=== PATIENT | female | born 1985 | race Caucasian/White ===

== ENCOUNTER 2016-10-03 20:49 | Emergency (ER) | payer BC ==
--- NOTE | 2016-10-03 21:28 | ED ---
General Adult HPI - General Chief complaint: Shortness of Breath Stated complaint: chest pain Time Seen by Provider: 10/03/16 21:00 Source: patient, RN notes reviewed Mode of arrival: ambulatory Limitations: no limitations - History of Present Illness Initial comments: This is a 31-year-old female presents emergency Department complaining of intermittent chest pain or shortness of breath over the last 2 weeks. Patient states it's been slowly getting worse and today was the worst of the 2 weeks. Patient states it comes it lasts about an hour and then it slowly goes away. Patient states it does seem to be worse with deep breathing. Patient states she hasn't been short of breath when she exerts herself just when she standing around and feels like she needs to take a deep breath. Patient states she has no risk factors she doesn't smoke she has no diabetes no high blood pressure no high cholesterol. Patient states she does have family history of heart disease her mother had heart attack in her 30s. Patient states currently she does have chest pain and it is under the left breast. Patient denies any pain with palpation. Patient denies any recent fever chills or cough. Patient denies any recent injury or trauma or new exercises. Patient denies abdominal pain patient denies nausea vomiting diarrhea. Patient denies any episodes of diaphoresis. Patient denies any lightheadedness dizziness or near syncopal episode. Patient denies any dysuria hematuria or frequency. Patient states she just started using the NuvaRing 3 months ago. - Related Data Home Medications Medication Instructions Recorded Confirmed Etonogestrel/Ethinyl Estradiol 1 ring VAGINAL Q28D 10/03/16 10/03/16 [Nuvaring Vaginal Ring] Ibuprofen [Motrin] 800 mg PO BID PRN 10/03/16 10/03/16 Allergies Allergy/AdvReac Type Severity Reaction Status Date / Time No Known Allergies Allergy Verified 10/03/16 21:30 Review of Systems ROS Statement: Those systems with pertinent positive or pertinent negative responses have been documented in the HPI. ROS Other: All systems not noted in ROS Statement are negative. Past Medical History Past Medical History: No Reported History History of Any Multi-Drug Resistant Organisms: None Reported Additional Past Surgical History / Comment(s): CERVIX PROCEDURE Past Psychological History: No Psychological Hx Reported Smoking Status: Never smoker Past Alcohol Use History: Rare Past Drug Use History: None Reported General Exam - General Exam Comments Initial Comments: GENERAL: Patient is well-developed and well-nourished. Patient is nontoxic and well- hydrated and is in mild distress. ENT: Neck is soft and supple. No significant lymphadenopathy is noted. Oropharynx is clear. Moist mucous membranes. Neck has full range of motion without eliciting any pain. EYES: The sclera were anicteric and conjunctiva were pink and moist. Extraocular movements were intact and pupils were equal round and reactive to light. Eyelids were unremarkable. PULMONARY: Unlabored respirations. Good breath sounds bilaterally. No audible rales rhonchi or wheezing was noted. CARDIOVASCULAR: There is a regular rate and rhythm without any murmurs gallops or rubs. ABDOMEN: Soft and nontender with normal bowel sounds. No palpable organomegaly was noted. There is no palpable pulsatile mass. SKIN: Skin is clear with no lesions or rashes and otherwise unremarkable. NEUROLOGIC: Patient is alert and oriented x3. Cranial nerves II through XII are grossly intact. Motor and sensory are also intact. Normal speech, volume and content. Symmetrical smile. MUSCULOSKELETAL: Normal extremities with adequate strength and full range of motion. No lower extremity swelling or edema. No calf tenderness. LYMPHATICS: No significant lymphadenopathy is noted PSYCHIATRIC: Normal psychiatric evaluation. Limitations: no limitations Course Vital Signs 10/03/16 10/03/16 21:05 21:43 Temperature 98.7 F Pulse Rate 78 Respiratory 18 16 Rate Blood Pressure 124/59 O2 Sat by Pulse 100 Oximetry Medical Decision Making - Medical Decision Making EKG shows a normal sinus rhythm at 65 bpm NM interval is 128 QRS is 90 QT interval 396 QTC is 411. Patient has no ST segment elevation or depression or T -wave abdomen is noted CT PE no PE was noted - Lab Data Result diagrams: 10/03/16 21:40 10/03/16 21:40 Lab Results 10/03/16 10/03/16 10/03/16 Range/Units 21:40 21:40 21:40 WBC 5.6 (3.8-10.6) k/uL RBC 4.22 (3.80-5.40) m/uL Hgb 12.8 (11.4-16.0) gm/dL Hct 37.4 (34.0-46.0) % MCV 88.7 (80.0-100.0) fL MCH 30.4 (25.0-35.0) pg MCHC 34.2 (31.0-37.0) g/dL RDW 12.8 (11.5-15.5) % Plt Count 181 (150-450) k/uL Neutrophils % 46 % Lymphocytes % 42 % Monocytes % 7 % Eosinophils % 2 % Basophils % 1 % Neutrophils # 2.5 (1.3-7.7) k/uL Lymphocytes # 2.3 (1.0-4.8) k/uL Monocytes # 0.4 (0-1.0) k/uL Eosinophils # 0.1 (0-0.7) k/uL Basophils # 0.0 (0-0.2) k/uL D-Dimer (<0.60) mg/L FEU Sodium 137 (137-145) mmol/L Potassium 4.0 (3.5-5.1) mmol/L Chloride 107 (98-107) mmol/L Carbon Dioxide 22 (22-30) mmol/L Anion Gap 8 mmol/L BUN 16 (7-17) mg/dL Creatinine 0.74 (0.52-1.04) mg/dL Est GFR (MDRD) Af Amer >60 (>60 ml/min/1.73 sqM) Est GFR (MDRD) Non-Af >60 (>60 ml/min/1.73 sqM) Glucose 94 (74-99) mg/dL Calcium 9.2 (8.4-10.2) mg/dL Magnesium 1.9 (1.6-2.3) mg/dL Total Bilirubin 0.4 (0.2-1.3) mg/dL AST 14 (14-36) U/L ALT 26 (9-52) U/L Alkaline Phosphatase 44 (38-126) U/L Total Creatine Kinase 60 (30-135) U/L CK-MB (CK-2) 0.5 (0.0-2.4) ng/mL CK-MB (CK-2) Rel Index 0.8 Troponin I <0.012 (0.000-0.034) ng/mL Total Protein 6.5 (6.3-8.2) g/dL Albumin 4.0 (3.5-5.0) g/dL 10/03/16 Range/Units 21:40 WBC (3.8-10.6) k/uL RBC (3.80-5.40) m/uL Hgb (11.4-16.0) gm/dL Hct (34.0-46.0) % MCV (80.0-100.0) fL MCH (25.0-35.0) pg MCHC (31.0-37.0) g/dL RDW (11.5-15.5) % Plt Count (150-450) k/uL Neutrophils % % Lymphocytes % % Monocytes % % Eosinophils % % Basophils % % Neutrophils # (1.3-7.7) k/uL Lymphocytes # (1.0-4.8) k/uL Monocytes # (0-1.0) k/uL Eosinophils # (0-0.7) k/uL Basophils # (0-0.2) k/uL D-Dimer 1.01 H (<0.60) mg/L FEU Sodium (137-145) mmol/L Potassium (3.5-5.1) mmol/L Chloride (98-107) mmol/L Carbon Dioxide (22-30) mmol/L Anion Gap mmol/L BUN (7-17) mg/dL Creatinine (0.52-1.04) mg/dL Est GFR (MDRD) Af Amer (>60 ml/min/1.73 sqM) Est GFR (MDRD) Non-Af (>60 ml/min/1.73 sqM) Glucose (74-99) mg/dL Calcium (8.4-10.2) mg/dL Magnesium (1.6-2.3) mg/dL Total Bilirubin (0.2-1.3) mg/dL AST (14-36) U/L ALT (9-52) U/L Alkaline Phosphatase (38-126) U/L Total Creatine Kinase (30-135) U/L CK-MB (CK-2) (0.0-2.4) ng/mL CK-MB (CK-2) Rel Index Troponin I (0.000-0.034) ng/mL Total Protein (6.3-8.2) g/dL Albumin (3.5-5.0) g/dL Disposition Clinical Impression: Pleuritic chest pain Disposition: HOME SELF-CARE Condition: Good Instructions: Pleurisy (ED) Referrals: None,Stated [Primary Care Provider] - 1-2 days Time of Disposition: 23:21
[2016-10-03 21:44] VITALS: RESP 16
--- NOTE | 2016-10-03 22:06 | XR ---
EXAMINATION TYPE: XR chest 2V DATE OF EXAM: 10/03/2016 9:53 PM COMPARISON: August 04, 2012 HISTORY: Difficulty in breathing chest pain x2 weeks TECHNIQUE: Frontal and lateral views of the chest are obtained. FINDINGS: No focal pneumonia pneumothorax or pleural effusion is noted.. The cardiac silhouette size is within normal limits. The osseous structures are intact. IMPRESSION: No active cardiopulmonary disease. No significant interval change.
[2016-10-03 22:07] LABS: ALT 26 U/L (9-52); AST 14 U/L (14-36); Alkaline Phosphatase 44 U/L (38-126); Anion Gap 8 mmol/L; Blood Urea Nitrogen 16 mg/dL (7-17); Calcium 9.2 mg/dL (8.4-10.2); Carbon Dioxide 22 mmol/L (22-30); Chloride 107 mmol/L (98-107); Glucose 94 mg/dL (74-99); Magnesium 1.9 mg/dL (1.6-2.3); Non-African American GFR(MDRD) >60 (>60 ml/min/1.73 sqM); Sodium 137 mmol/L (137-145); Total Bilirubin 0.4 mg/dL (0.2-1.3); Total Protein 6.5 g/dL (6.3-8.2)
[2016-10-03 22:12] LABS: Basophils % (A) 1 %; CH 30.8; CHCM 34.8; Eosinophils # (A) 0.1 k/uL (0-0.7); Eosinophils % (A) 2 %; HCT 37.4 % (34.0-46.0); HDW 2.77; HGB 12.8 gm/dL (11.4-16.0); Luc # (Auto) 0.19; Luc % (Auto) 3; Lymphocytes # (A) 2.3 k/uL (1.0-4.8); Lymphocytes % (A) 42 %; MCH 30.4 pg (25.0-35.0); MCHC 34.2 g/dL (31.0-37.0); MCV 88.7 fL (80.0-100.0); Mean Platelet Volume 8.4; Monocytes # (A) 0.4 k/uL (0-1.0); Monocytes % (A) 7 %; Neutrophils # (A) 2.5 k/uL (1.3-7.7); Neutrophils % (A) 46 %; RBC 4.22 m/uL (3.80-5.40); RDW 12.8 % (11.5-15.5); WBC 5.6 k/uL (3.8-10.6); WBC (Perox) 5.73
[2016-10-03 22:17] LABS: Creatine Kinase 60 U/L (30-135)
[2016-10-03 22:30] LABS: Creatine Kinase MB 0.5 ng/mL (0.0-2.4); Troponin I <0.012 ng/mL (0.000-0.034)
[2016-10-03] MEDS ORDERED: RX INFO: IV CONTRAST WAS GIVEN 1 EACH MISC MISCELLANE PRN (22:35)
--- NOTE | 2016-10-03 23:19 | CT ---
EXAMINATION TYPE: CT chest angio for PE DATE OF EXAM: 10/03/2016 10:56 PM COMPARISON: NONE HISTORY: Mid chest pain and shortness of breath on and off x 2 weeks with extremity weakness. CT DLP: 108.80 mGycm Automated exposure control for dose reduction was used. CONTRAST: CT Chest for pulmonary embolism performed with with IV Contrast, patient injected with 77 mL of Omnip aque 350. FINDINGS: LUNGS: Mild dependent atelectasis is noted in both lung bases. No focal pneumonia pneumothorax or pleural effusion is noted. Mild emphysematous changes are noted in both lung bases. Somewhat nodular scarring is suggested in the right lung base. There is no pleural effusion or pneumothorax seen. The tracheobronchial tree is patent. MEDIASTINUM: There is satisfactory enhancement of the pulmonary artery and its branches, there is no CT evidence for pulmonary embolism. There are no greater than 1 cm hilar or mediastinal lymph nodes. No pericardial effusion is seen. OTHER: Mild degenerative changes are present in the thoracic spine. IMPRESSION: No evidence of acute pulmonary embolism. No focal pneumonia.
[2016-10-03 23:42] VITALS: BP 115/58; PULSE 76; TEMP 98.2
== END 2016-10-03 23:41 | disposition home or self-care (01) ==
LOC: EC 20:49 → MERGE 20:49 → EC 23:41
DX: R07.81 Pleurodynia (principal); R06.02 Shortness of breath; Z82.49 Family history of ischemic heart disease and other diseases of the circulatory system; Z79.3 Long term (current) use of hormonal contraceptives
CPT/HCPCS: 99285 ×2; 36415; 93005; 85379; 80053; 82550; 82553; 83735; 84484; 85025; 71020; 71275; Q9967

== ENCOUNTER → 2016-10-26 | Outpatient (CLI) | payer BC ==
--- NOTE | 2016-10-26 10:36 | ECHOF ---
Referral Reason:R07.9 Chest Pain MEASUREMENTS -------- HEIGHT: 162.6 cm WEIGHT: 54.0 kg BP: 140/72 RVIDd: 1.9 cm (< 3.3) IVSd: 0.8 cm (0.6 - 1.1) LVIDd: 4.3 cm (3.9 - 5.3) LVPWd: 0.6 cm (0.6 - 1.1) IVSs: 1.1 cm LVIDs: 2.6 cm LVPWs: 0.9 cm LA Diam: 1.9 cm (2.7 - 3.8) Ao Diam: 2.8 cm (2.0 - 3.7) AV Cusp: 2.0 cm (1.5 - 2.6) MV EXCURSION: 23.861 mm (> 18.000) MV EF SLOPE: 74 mm/s (70 - 150) EPSS: 0.4 cm MV E Florian: 1.12 m/s MV DecT: 230 ms MV A Florian: 0.55 m/s MV E/A Ratio: 2.06 RAP: 5.00 mmHg RVSP: 22.27 mmHg FINDINGS -------- Sinus rhythm. This was a technically good study. The left ventricular size is normal. Left ventricular wall thickness is normal. Overall left ventricular systolic function is normal with, an EF between 60 - 65 %. The right ventricle is normal in size and function. The left atrial size is normal. The right atrium is normal in size. The aortic valve is trileaflet and appears structurally normal. Mild prolapse of the anterior mitral valve leaflet. Mild tricuspid regurgitation present. Right ventricular systolic pressure is normal at < 35 mmHg. Trace/mild (physiologic) pulmonic regurgitation. The aortic root size is normal. Normal inferior vena cava with normal inspiratory collapse consistent with estimated right atrial pressure of 5 mmHg. There is no pericardial effusion. CONCLUSIONS -------- 1. Sinus rhythm. 2. Mild prolapse of the anterior mitral valve leaflet. 3. Mild tricuspid regurgitation present. 4. Right ventricular systolic pressure is normal at < 35 mmHg. 5. Trace/mild (physiologic) pulmonic regurgitation. 6. The aortic root size is normal. 7. Normal inferior vena cava with normal inspiratory collapse consistent with estimated right atrial pressure of 5 mmHg. 8. There is no pericardial effusion. 9. This was a technically good study. 10. The left ventricular size is normal. 11. Left ventricular wall thickness is normal. 12. Overall left ventricular systolic function is normal with, an EF between 60 - 65 %. 13. The right ventricle is normal in size and function. 14. The left atrial size is normal. 15. The right atrium is normal in size. 16. The aortic valve is trileaflet and appears structurally normal. [employer] PLANTER: Summer Vicente RDCS
== END | disposition home or self-care (01) ==
LOC: RADECHMAIN 08:15
PROVIDERS: ATTEND Family Medicine
DX: I07.1 Rheumatic tricuspid insufficiency (principal); I37.1 Nonrheumatic pulmonary valve insufficiency
CPT/HCPCS: 93306

== ENCOUNTER → 2016-11-11 | Outpatient (CLI) | payer BC | END | disposition home or self-care (01) | LOC: RADECHMAIN 11:59 | PROVIDERS: ATTEND Nurse Practitioner Family | DX: R00.1 Bradycardia, unspecified (principal); R00.0 Tachycardia, unspecified | CPT/HCPCS: 93225; 93226 ==

== ENCOUNTER 2018-03-30 12:59 | Emergency (ER) | payer BC, OTHER ==
[2018-03-30 13:24] VITALS: RESP 18
[2018-03-30] MEDS ORDERED: SODIUM CHLORIDE 0.9% 1,000 ML IV ONE (14:06)
--- NOTE | 2018-03-30 14:08 | ED ---
Abdominal Pain HPI - General Chief Complaint: Abdominal Pain Stated Complaint: 8 wks preg abd pain Time Seen by Provider: 03/30/18 13:59 Source: patient Mode of arrival: ambulatory Limitations: no limitations - History of Present Illness Initial Comments: 32 yoF presenting with lower abdominal cramping and light headedness that began this morning at 9 am. Patient is 8 weeks by LMP and has been seeing Dr. Finn for OBGYN care. She states she has been experiencing morning nausea throughout the duration of this . Today she was unable to eat breakfast because of it. She began to experience intermittent cramping lower abdominal pain worse with ambulation and not improved by anything. She denies any vaginal bleeding, discharge, or urinary symptoms. She states while ambulating today she had a near syncopal episode characterized by room spinning dizziness, light headedness, and generalized weakness. She denies chest pain or shortness of breath. Denies previous episodes similar. She states her last was uneventful. She called her OBGYN who instructed her to come to the ED. - Related Data Home Medications Medication Instructions Recorded Confirmed Gummies 2 tab PO DAILY 03/30/18 03/30/18 Previous Rx's Medication Instructions Recorded Meclizine [Antivert] 25 mg PO BID #20 tab 03/30/18 Allergies Allergy/AdvReac Type Severity Reaction Status Date / Time No Known Allergies Allergy Verified 03/30/18 13:44 Review of Systems ROS Statement: Those systems with pertinent positive or pertinent negative responses have been documented in the HPI. Review of Systems Constitutional: Denies fever, chills Eyes: Denies change in vision, Denies pain Ears, nose, mouth, throat: Denies headaches, Denies sore throat Cardiovascular: Denies chest pain. Denies palpitations. Positive light headedness. Respiratory: Denies shortness of breath, Denies cough Gastrointestinal: Positive abdominal pain. abdominal pain. Positive nausea. Denies vomiting, diarrhea. Genitourinary: Denies hematuria, Denies infections Musculoskeletal: Denies pain, Denies swelling Integumentary: Denies rash Neurological: Denies headache, focal weakness, focal numbness Psychiatric: Denies anxiety, Denies depression Hematologic/Lymphatic: Denies easy bleeding or bruising ROS Other: All systems not noted in ROS Statement are negative. Past Medical History Past Medical History: No Reported History History of Any Multi-Drug Resistant Organisms: None Reported Past Surgical History: No Surgical Hx Reported Additional Past Surgical History / Comment(s): CERVIX PROCEDURE Past Psychological History: No Psychological Hx Reported Smoking Status: Never smoker Past Alcohol Use History: None Reported Past Drug Use History: None Reported General Exam - General Exam Comments Initial Comments: General: Awake, alert, No acute Distress HENT: Normocephalic. Atraumatic. TM clear and without erythema. Eyes: PERRL. EOMI. No scleral icterus. No injected conjunctiva. Fatigable nystagmus bilaterally Neck: Full ROM Chest/Lungs: Clear to auscultation bilaterally. No wheezing, rhonchi, or rales Cardiac: Regular rate, rhythm. No murmurs or rubs Abdomen/GI: Soft, nontender, nondistended. No rebound, guarding, or rigidity. Musculoskeletal: Full ROM Skin: Warm, dry, intact Neurologic: A/Ox3, no weakness, no sensory deficit, no abnormal gait, no coordination deficit. FTN intact. Rapid alternating movements intact. Limitations: no limitations Course Vital Signs 03/30/18 03/30/18 03/30/18 13:21 15:35 15:59 Temperature 97.8 F Pulse Rate 81 80 79 Respiratory 18 18 18 Rate Blood Pressure 109/74 119/78 106/58 O2 Sat by Pulse 100 100 98 Oximetry Medical Decision Making - Medical Decision Making 32-year-old female presenting with lightheadedness, lower abdominal cramping, and presyncopal symptoms. Initial exam the patient is awake, alert, no acute distress. VSS. EKG shows NSR at a rate of 68 bpm without arrhythmia, ST segment elevation or depression. Patient's ultrasound shows a live IUP with a heart rate of 149. Patient is having any vaginal bleeding. Her laboratory workup is unremarkable and she is a beta hCG over 81,000. Prior to discharge the patient complained of room spinning dizziness. Denies any headache, focal weakness numbness, change in vision. She had fatigable nystagmus bilaterally but otherwise a nonfocal neurologic exam. Discussed with the patient CTV of her head versus Antivert and waiting to see improvement. Patient declined CT at this time. Patient reevaluated after Antivert and her symptoms had improved. She is able to ambulate without any difficulty. He would still like to defer on CT imaging. At this time no further emergent workup indicated. This patient that she is still at risk for miscarriage. Discussed concerning symptoms that would warrant return to the ER. She was told to follow-up with her CLERGY MEMBER in office next week. Patient was offered a work states she does not work Saturdays and Sundays. Stable for discharge. - Lab Data Result diagrams: 03/30/18 13:40 03/30/18 13:40 Lab Results 03/30/18 03/30/18 03/30/18 Range/Units 13:40 13:40 13:40 WBC 7.7 (3.8-10.6) k/uL RBC 4.35 (3.80-5.40) m/uL Hgb 12.9 (11.4-16.0) gm/dL Hct 39.1 (34.0-46.0) % MCV 89.9 (80.0-100.0) fL MCH 29.8 (25.0-35.0) pg MCHC 33.1 (31.0-37.0) g/dL RDW 12.6 (11.5-15.5) % Plt Count 189 (150-450) k/uL Neutrophils % 73 % Lymphocytes % 20 % Monocytes % 5 % Eosinophils % 1 % Basophils % 0 % Neutrophils # 5.6 (1.3-7.7) k/uL Lymphocytes # 1.5 (1.0-4.8) k/uL Monocytes # 0.4 (0-1.0) k/uL Eosinophils # 0.1 (0-0.7) k/uL Basophils # 0.0 (0-0.2) k/uL Sodium 137 (137-145) mmol/L Potassium 3.8 (3.5-5.1) mmol/L Chloride 102 (98-107) mmol/L Carbon Dioxide 25 (22-30) mmol/L Anion Gap 10 mmol/L BUN 8 (7-17) mg/dL Creatinine 0.59 (0.52-1.04) mg/dL Est GFR (CKD-EPI)AfAm >90 (>60 ml/min/1.73 sqM) Est GFR (CKD-EPI)NonAf >90 (>60 ml/min/1.73 sqM) Glucose 111 H (74-99) mg/dL Calcium 9.6 (8.4-10.2) mg/dL HCG, Quant 52547.7 mIU/mL Urine Color Colorless Urine Appearance Clear (Clear) Urine pH 6.5 (5.0-8.0) Ur Specific [place] 1.003 (1.001-1.035) Urine Protein Negative (Negative) Urine Glucose (UA) Negative (Negative) Urine Ketones Negative (Negative) Urine Blood Negative (Negative) Urine Nitrite Negative (Negative) Urine Bilirubin Negative (Negative) Urine Urobilinogen <2.0 (<2.0) mg/dL Ur Leukocyte Esterase Negative (Negative) Disposition Clinical Impression: Abdominal pain during in first trimester, Dizziness, Generalized weakness Disposition: HOME SELF-CARE Condition: Good Instructions: Abdominal Pain in (ED), Vertigo (ED), Dizziness (ED) Prescriptions: Meclizine [Antivert] 25 mg PO BID #20 tab Is patient prescribed a controlled substance at d/c from ED?: No Referrals: Josh Finn MD [STAFF PHYSICIAN] - 1-2 days Salvador Owens MD [Primary Care Provider] - 1-2 days
[2018-03-30 14:14] LABS: Basophils % (A) 0 %; Eosinophils # (A) 0.1 k/uL (0-0.7); Eosinophils % (A) 1 %; HCT 39.1 % (34.0-46.0); HGB 12.9 gm/dL (11.4-16.0); Lymphocytes # (A) 1.5 k/uL (1.0-4.8); Lymphocytes % (A) 20 %; MCH 29.8 pg (25.0-35.0); MCHC 33.1 g/dL (31.0-37.0); MCV 89.9 fL (80.0-100.0); Mean Platelet Volume 8.3; Monocytes # (A) 0.4 k/uL (0-1.0); Monocytes % (A) 5 %; Neutrophils # (A) 5.6 k/uL (1.3-7.7); Neutrophils % (A) 73 %; Platelet Count 189 k/uL (150-450); RBC 4.35 m/uL (3.80-5.40); RDW 12.6 % (11.5-15.5); WBC 7.7 k/uL (3.8-10.6)
[2018-03-30 14:29] LABS: Anion Gap 10 mmol/L; Blood Urea Nitrogen 8 mg/dL (7-17); Calcium 9.6 mg/dL (8.4-10.2); Carbon Dioxide 25 mmol/L (22-30); Chloride 102 mmol/L (98-107); Glucose 111 mg/dL (74-99); Potassium 3.8 mmol/L (3.5-5.1); Sodium 137 mmol/L (137-145)
[2018-03-30 14:30] LABS: Appearance,Urine Clear (Clear); Bilirubin,Urine Negative (Negative); Blood,Urine Negative (Negative); Color,Urine Colorless; Glucose,Urine (UA) Negative (Negative); Ketones,Urine Negative (Negative); Leukocyte Esterase,Urine Negative (Negative); Nitrite,Urine Negative (Negative); PH, Urine 6.5 (5.0-8.0); Protein,Urine Negative (Negative); Specific Gravity,Urine 1.003 (1.001-1.035); Urobilinogen,Urine <2.0 mg/dL (<2.0)
--- NOTE | 2018-03-30 14:53 | US ---
EXAMINATION TYPE: Transabdominal DATE OF EXAM: 12/05/17 COMPARISON: NONE CLINICAL HISTORY: Pain. Pt states lower ABD cramping, dizziness, weakness EXAM PERFORMED: Transabdominal (TA) EXAM MEASUREMENTS: GESTATIONAL AGE / DATING Physician Established: Not yet established Dates by LMP: (8 weeks/3 days) EDC: 11/06/2018 Dates by First Scan: No prior Dates by Current Scan for: (7 weeks/2 days) EDC: 11/14/2018 MATERNAL ANATOMY Uterus: 10.6 x 7.2 x 8.0 cm Right Ovary: 2.6 x 1.6 x 1.8 cm Left Ovary: 3.1 x 2.3 x 2.3 Post CDS / Adnexa: wnl Presence of free fluid: No Presence of corpus luteal cyst: Left Ovary= 2.1 x 1.6 x 1.7 cm Presence of subchorionic bleed: No GESTATION / SURVEY CRL: 1.1 cm (7 weeks/2 days) MSD: wnl Yolk Sac (normal less than 6mm): 3mm Heart Rate: 149 bpm Rhythm: Normal IUP: Viable IUP Date of LMP: 01/30/2018 Single, viable IUP IMPRESSION: Single live intrauterine with a sonographic age of 7 weeks and 2 days and estimated date of delivery of 11/14/2018, slightly discordant with menstrual age. No complicating process is identified .
[2018-03-30 15:28] LABS: HCG,Quantitative Serum 81531.7 mIU/mL
[2018-03-30] MEDS ORDERED: ACETAMINOPHEN TAB 325 MG TAB PO STA (15:35)
[2018-03-30] MEDS ORDERED: MECLIZINE 12.5 MG TAB PO STA (15:35)
[2018-03-30 17:14] VITALS: BP 109/62; PULSE 76; TEMP 97.6
== END 2018-03-30 17:13 | disposition home or self-care (01) ==
LOC: EC 12:59
DX: O99.89 Other specified diseases and conditions complicating pregnancy, childbirth and the puerperium (principal); R10.30 Lower abdominal pain, unspecified; R42 Dizziness and giddiness; R53.1 Weakness; R55 Syncope and collapse; H55.00 Unspecified nystagmus; Z79.899 Other long term (current) drug therapy; Z98.890 Other specified postprocedural states; Z3A.08 8 weeks gestation of pregnancy
CPT/HCPCS: 36415; 76801; 80048; 81003; 84702; 85025; 93005; 96360; 99284

== ENCOUNTER 2018-11-09 06:08 | Inpatient (IN) | payer BC, OTHER ==
[2018-11-09] MEDS ORDERED: ceFAZolin IN SWFI 2 GM/20 ML SYRINGE IVP ONE (06:15)
[2018-11-09] MEDS ORDERED: LACTATED RINGERS 1,000 ML IV ONE (06:15)
[2018-11-09] MEDS ORDERED: CITRIC ACID-SODIUM CITRATE 15 ML CUP PO ONE (06:15)
[2018-11-09 06:20] VITALS: BMI 25.7
[2018-11-09] MEDS: LACTATED RINGERS 1,000 ML IV SCH ×4 (06:21→21:51)
[2018-11-09 06:35] LABS: Basophils % (A) 0 %; Eosinophils # (A) 0.1 k/uL (0-0.7); Eosinophils % (A) 1 %; HCT 33.7 % (34.0-46.0); HGB 10.9 gm/dL (11.4-16.0); Hypochromasia Slight; Lymphocytes # (A) 1.7 k/uL (1.0-4.8); Lymphocytes % (A) 19 %; MCH 27.2 pg (25.0-35.0); MCHC 32.3 g/dL (31.0-37.0); MCV 84.4 fL (80.0-100.0); Mean Platelet Volume 8.6; Monocytes # (A) 0.5 k/uL (0-1.0); Monocytes % (A) 6 %; Neutrophils # (A) 6.2 k/uL (1.3-7.7); Neutrophils % (A) 71 %; Platelet Count 186 k/uL (150-450); RBC 3.99 m/uL (3.80-5.40); RDW 15.1 % (11.5-15.5); WBC 8.7 k/uL (3.8-10.6)
[2018-11-09] MEDS ORDERED: ePHEDrine SULFATE/0.9% NACL/PF 50 MG/5 ML SYRINGE IV ONE (08:08)
[2018-11-09] MEDS ORDERED: NALBUPHINE 10 MG/ML (1 ML AMP) ONE (08:08)
[2018-11-09] MEDS ORDERED: KETOROLAC 30 MG/ML 1 ML VIAL ONE (08:08)
[2018-11-09] MEDS ORDERED: ONDANSETRON 4 MG/2 ML VIAL ONE (08:08)
[2018-11-09] MEDS ORDERED: MORPHINE SULFATE (PF) 0.3 MG/0.3 ML SYR ONE (08:08)
[2018-11-09] MEDS ORDERED: OXYTOCIN 10 UNIT/ML 1 ML VIAL ONE (08:08)
[2018-11-09] MEDS ORDERED: diphenhydrAMINE 50 MG CAP PO PRN (09:01)
[2018-11-09] MEDS ORDERED: diphenhydrAMINE 25 MG CAP PO PRN (09:01)
[2018-11-09] MEDS ORDERED: ONDANSETRON 4 MG/2 ML VIAL IVP PRN (09:01)
[2018-11-09] MEDS ORDERED: ACETAMINOPHEN TAB 325 MG TAB PO PRN (09:01)
[2018-11-09] MEDS ORDERED: diphenhydrAMINE 50 MG/ML 1 ML VIAL IVP PRN ×2 (09:01)
[2018-11-09] MEDS ORDERED: HYDROcodone/APAP 7.5-325MG 1 EACH TAB PO PRN (09:01)
[2018-11-09] MEDS ORDERED: NALOXONE 0.4 MG/ML 1 ML VIAL IV PRN (09:01)
[2018-11-09] MEDS ORDERED: METOCLOPRAMIDE 5 MG/ML 2 ML VIAL IVP PRN (09:01)
[2018-11-09] MEDS ORDERED: LANOLIN CREAM 5 GM TUBE TOPICAL PRN (09:01)
[2018-11-09] MEDS ORDERED: ZOLPIDEM 5 MG TAB PO PRN (09:01)
--- NOTE | 2018-11-09 09:06 | P.HPOB ---
History of Present Illness H&P Date: 11/09/18 Chief Complaint: 39-0/7 weeks, breech presentation The patient is a 83-year-old 2 para 1001 admitted at 39-0/7 weeks as established by seven-week ultrasound. She is admitted for primary low- transverse section secondary to the persistent finding of breech pr esentation. She was offered external cephalic version and declined in favor of section. Her has been uncomplicated and group B strep status is negative. On labor and delivery, all signs reassuring. Obstetrical history: 2 para 1001 with 1 term vaginal deliveries without complications. Current statistics are listed above. EDC of 11/14/2018 was established by seven-week ultrasound. Laboratory workup demonstrates a blood type of A+ with a negative antibody screen. Rubella status is immune. All other laboratory workup was within normal limits. One hour Glucola was normal and group B strep status is negative. Clinic history: Unremarkable with no history of any infections to include STDs. Review of Systems Review of systems is confined to history of present illness. Past Medical History Past Medical History: No Reported History History of Any Multi-Drug Resistant Organisms: None Reported Past Surgical History: No Surgical Hx Reported Additional Past Surgical History / Comment(s): CERVIX PROCEDURE Past Anesthesia/Blood Transfusion Reactions: No Reported Reaction Past Psychological History: No Psychological Hx Reported Smoking Status: Never smoker Past Alcohol Use History: None Reported Past Drug Use History: None Reported - Past Family History Mother Family Medical History: Cancer Additional Family Medical History / Comment(s): Grandmother has lung cancer Medications and Allergies Home Medications Medication Instructions Recorded Confirmed Type Gummies 2 tab PO DAILY 03/30/18 11/09/18 History Allergies Allergy/AdvReac Type Severity Reaction Status Date / Time No Known Allergies Allergy Verified 11/09/18 06:13 Exam Vital Signs Temp Pulse Resp BP Pulse Ox 11/09/18 06:13 97 F L 82 16 120/64 97 Intake and Output 11/08/18 11/09/18 11/09/18 22:59 06:59 14:59 Other: Weight 68.039 kg In general, this is a well-developed, well-nourished white female in no acute distress. Her heart has a regular rhythm and rate without murmur. Her lungs are clear to auscultation bilaterally in all tam. Her abdomen is gravid, nondistended, has normal active bowel sounds, soft, nontender, and without any palpable masses aside from uterine fundus. Her extremities without any cyanosis, clubbing, or edema and are nontender to palpation bilaterally. Digital cervical examination is deferred. Bedside ultrasound confirms the presence of the vertex in the right upper quadrant. Results Result Diagrams: 11/09/18 06:23 Abnormal Lab Results - Last 24 Hours (Table) 11/09/18 Range/Units 06:23 Hgb 10.9 L (11.4-16.0) gm/dL Hct 33.7 L (34.0-46.0) % Assessment and Plan (1) Term Current Visit: Yes Status: Acute Code(s): Z34.80 - ENCOUNTER FOR SUPRVSN OF NORMAL , UNSP TRIMESTER SNOMED Code(s): 44826173 (2) Breech presentation Current Visit: Yes Status: Acute Code(s): O32.1XX0 - MATERNAL CARE FOR BREECH PRESENTATION, UNSP SNOMED Code(s): 2945366 Plan: The patient is admitted for primary low-transverse section. The risks and, occasions have been discussed and she has understood and agreed to proceed.
--- NOTE | 2018-11-09 09:11 | P.OP ---
Date of Procedure: 11/09/18 Preoperative Diagnosis: #1. 39-0/7 weeks #2. Breech presentation Postoperative Diagnosis: Same Procedure(s) Performed: #1. Primary low-transverse section Anesthesia: spinal Surgeon: Josh Finn Motor Vehicle Representative #1: Jenae Christina Estimated Blood Loss (ml): 600 IV fluids (ml): 1,300 Urine output (ml): 100 Pathology: none sent Condition: stable Disposition: floor Operative Findings: Preoperative the, the ultrasound was utilized to confirm breech presentation. She was taken to the operating room where she was delivered of a viable 8 lbs. 4 oz. baby boy with Apgars of 9 at 1 minute and 9 at 5 minutes delivered in the double footling breech presentation. Standard breech maneuvers were of used. The placenta was delivered manually, intact, and grossly normal with a grossly normal three-vessel cord. The uterus, tubes, and ovaries were entirely normal to inspection. Description of Procedure: The patient was prepped and draped in usual fashion after spinal anesthesia was administered by the anesthesiologist. A Pfannenstiel incision was made and extended into the abdominal cavity without difficulty. The bladder peritoneum was elevated, incised, and reflected distally. A 2 cm incision was made in the transverse plane of the lower uterine segment to enter the uterus at which time clear fluid was noted. The incision was extended in both directions using the bandage scissors. Both feet were encountered within the field and were grasped and the infant delivered to the waist. Remainder of the was delivered with standard breech maneuvers without difficulty. The cord was doubly clamped, cut, and the passed for resuscitative measures with weight and Apgars as noted above. A segment of cord was doubly clamped, cut, and set aside should cord gases become necessary. The placenta was delivered manually and intact as noted above. The uterus was exteriorized and the interior cavity of uterus swept of any remaining placental or membranous fragments. The margins of the incision were grasped with Espinosa clamps and the incision closed in 2 layers. The first layer was a running locking stitch of 0 chromic catgut followed by a running imbricating stitch of 0 chromic catgut, each from margin to margin. Hemostasis appeared to be excellent. The posterior cul-de-sac was suctioned with a guard and the uterine and ovarian findings were normal as noted above. The uterus was replaced within the abdominal cavity and one point of bleeding noted in the midline of the incision which was made hemostatic with a [id number]-[id number] stitch of 0 chromic catgut. Any further small points of bleeding were made hemostatic with the Bovie. Once hemostasis was assured, the parietal peritoneum was loosely reapproximated and layer of muscles examined and made hemostatic with the Bovie. The fascia was closed with 2 running stitches of 0 Vicryl proceeding from the lateral margins to the midpoint. The subcutaneous tissues were irrigated, made hemostatic with the Bovie and not closed as they were less than 2 cm in thickness. The skin was approximate with a running subcuticular stitch of 4-0 Vicryl followed by half-inch Steri-Strips placed with Mastisol. Estimated blood loss for the case was approximate 600 mL. There are no complications. All sponge, instrument, and needle counts were correct. Both mother and infant are resting comfortably in recovery.
[2018-11-09] MEDS ORDERED: OXYTOCIN 20 UNITS/1000 ML NS 1,000 ML IV SCH (09:15)
[2018-11-09] MEDS ORDERED: ACETAMINOPHEN IV (For NPO) 1,000 MG in EMPTY BAG 1 BAG IVPB ONE (10:00)
[2018-11-09] MEDS: KETOROLAC 30 MG/ML 1 ML VIAL IVP PRN (17:01)
[2018-11-09] MEDS: SENNOSIDES-DOCUSATE SODIUM 1 EACH TAB PO SCH (21:51)
[2018-11-10] MEDS: LACTATED RINGERS 1,000 ML IV SCH (03:27)
[2018-11-10] MEDS: KETOROLAC 30 MG/ML 1 ML VIAL IVP PRN (06:34)
[2018-11-10 07:19] LABS: Basophils # (A) 0.1 k/uL (0-0.2); Basophils % (A) 0 %; Eosinophils # (A) 0.1 k/uL (0-0.7); Eosinophils % (A) 1 %; HCT 27.7 % (34.0-46.0); Hypochromasia Slight; Lymphocytes # (A) 1.1 k/uL (1.0-4.8); Lymphocytes % (A) 10 %; MCH 27.8 pg (25.0-35.0); MCHC 32.3 g/dL (31.0-37.0); Mean Platelet Volume 8.4; Monocytes # (A) 0.6 k/uL (0-1.0); Monocytes % (A) 5 %; Neutrophils # (A) 9.6 k/uL (1.3-7.7); Neutrophils % (A) 83 %; Platelet Count 160 k/uL (150-450); RBC 3.22 m/uL (3.80-5.40); RDW 15.3 % (11.5-15.5); WBC 11.5 k/uL (3.8-10.6)
[2018-11-10] MEDS: SENNOSIDES-DOCUSATE SODIUM 1 EACH TAB PO SCH ×2 (09:05→20:42)
--- NOTE | 2018-11-10 10:36 | P.PNOBGPC ---
Subjective - Subjective Principal diagnosis: POD 1 RCS Interval history: Patient is doing well. She is ambulating and voiding without difficulty. She is tolerating a regular diet without nausea or vomiting. She states her lochia is moderate. Pain is controlled with oral pain medication. Patient reports: Reports appetite normal, Reports voiding normally, Reports pain well controlled, Reports ambulating normally [place]: doing well (In the nursery on high flow oxygen.) Objective - Vital Signs Latest vital signs: Vital Signs Temp Pulse Resp BP Pulse Ox 11/10/18 08:53 98.4 F 81 17 105/61 11/10/18 04:00 98.1 F 83 15 115/63 11/10/18 00:00 98 F 82 16 107/60 11/09/18 20:00 98 F 97 15 122/72 98 11/09/18 16:00 97.6 F 79 16 112/58 11/09/18 11:40 98.4 F 77 16 122/65 11/09/18 11:15 98.1 F 77 16 122/57 Intake and Output 11/09/18 11/10/18 11/10/18 22:59 06:59 14:59 Output Total 1000 300 Balance -1000 -300 Output: Urine 1000 300 Straight 300 Uretheral (Mendoza) 500 - Exam Extremities: Present: normal Abdomen: Present: normal appearance, soft Incision: Present: normal, dry, intact Uterus: Present: normal, firm - Labs Labs: Abnormal Lab Results - Last 24 Hours (Table) 11/10/18 Range/Units 06:49 WBC 11.5 H (3.8-10.6) k/uL RBC 3.22 L (3.80-5.40) m/uL Hgb 9.0 L D (11.4-16.0) gm/dL Hct 27.7 L (34.0-46.0) % Neutrophils # 9.6 H (1.3-7.7) k/uL Assessment and Plan (1) Breech presentation Current Visit: Yes Status: Acute Code(s): O32.1XX0 - MATERNAL CARE FOR BREECH PRESENTATION, UNSP SNOMED Code(s): 1140329 (2) S/P section Current Visit: Yes Status: Acute Code(s): Z98.891 - HISTORY OF UTERINE SCAR FROM PREVIOUS SURGERY SNOMED Code(s): 693302280 (3) Term Current Visit: Yes Status: Acute Code(s): Z34.80 - ENCOUNTER FOR SUPRVSN OF NORMAL , UNSP TRIMESTER SNOMED Code(s): 99293494 Plan: We'll continue routine postoperative care.
[2018-11-10] MEDS: IBUPROFEN 600 MG TAB PO PRN ×2 (12:11→17:39)
[2018-11-10] MEDS: HYDROcodone/APAP 5-325MG 1 EACH TAB PO PRN (19:00)
[2018-11-10] MEDS: SIMETHICONE 80 MG CHEWABLE PO PRN (20:14)
[2018-11-11] MEDS: HYDROcodone/APAP 5-325MG 1 EACH TAB PO PRN (01:55)
[2018-11-11 07:35] VITALS: BP 98/54; PULSE 70; RESP 17; TEMP 98.1
[2018-11-11] MEDS: SENNOSIDES-DOCUSATE SODIUM 1 EACH TAB PO SCH (07:35)
[2018-11-11] MEDS: SIMETHICONE 80 MG CHEWABLE PO PRN (08:45)
--- NOTE | 2018-11-11 09:53 | P.DS ---
Providers Date of admission: 11/09/18 06:08 Expected date of discharge: 11/11/18 Attending physician: Josh Finn Primary care physician: Stated None - Discharge Diagnosis(es) (1) Breech presentation Current Visit: Yes Status: Acute (2) S/P section Current Visit: Yes Status: Acute (3) Term Current Visit: Yes Status: Acute Hospital Course: This is a 33-year-old 2 para 1001 admitted at 39 0/7 weeks for primary low transverse section secondary to breech presentation. Patient had her which was completed without difficulty and has been doing well postoperatively. Patient is ambulating and voiding without difficulty. She is breast-feeding without issue, she is tolerating a regular diet without nausea or vomiting and wishes discharge home on this postop day #2. Patient Condition at Discharge: Good Plan - Discharge Summary New Discharge Prescriptions: No Action Gummies 2 tab PO DAILY Discharge Medication List Gummies 2 tab PO DAILY 03/30/18 [History] Follow up Appointment(s)/Referral(s): Josh Finn MD [STAFF PHYSICIAN] - 2 Weeks Patient Instructions/Handouts: (DC), (GEN) Discharge Disposition: HOME SELF-CARE
--- NOTE | 2018-11-11 16:53 | P.PN ---
Progress Note - Text Progress Note Date: 11/10/18 This is late entry , for this progress note patient was seen on 11/10/2018 , 11,30 am morning. Postoperative day 1 status post section under spinal anesthesia, and intrathecal morphine given for postoperative analgesia, patient doing well, there is no anesthesia related complications, Patient had no headache, vital signs stable , Assessment and plan= postop day 1 status post , doing well there is no anesthesia related complication.
== END 2018-11-11 10:55 | disposition home or self-care (01) | DRG 788 ==
LOC: 4FBP 06:08
PROVIDERS: ADMIT Obstetrics & Gynecology; ATTEND Obstetrics & Gynecology
PROC: 10D00Z1 Extraction of Products of Conception, Low, Open Approach (ICD-10-PCS; principal; 2018-11-09 08:00)
DX: O32.8XX0 Maternal care for other malpresentation of fetus, not applicable or unspecified (principal); Z3A.39 39 weeks gestation of pregnancy; Z37.0 Single live birth; Z80.1 Family history of malignant neoplasm of trachea, bronchus and lung
CPT/HCPCS: 85025; 86850; 86900; 86901

== ENCOUNTER → 2019-03-28 | Outpatient (CLI) | payer BC ==
--- NOTE | 2019-03-28 13:12 | XR ---
EXAMINATION TYPE: XR foot complete LT DATE OF EXAM: 03/28/2019 CLINICAL HISTORY: Left foot pain after fall. Pain is localized to the first metatarsal and ecchymosis is seen from the first through the fifth metatarsal. TECHNIQUE: Frontal, lateral, and oblique images of the left foot are obtained. COMPARISON: None FINDINGS: There is no acute fracture/dislocation evident in the left foot. The joint spaces in the left foot appear within normal limits. Hallux valgus deformity is seen. The overlying soft tissue ap pears unremarkable. IMPRESSION: There is no acute fracture or dislocation in the left foot.
--- NOTE | 2019-03-28 13:30 | XR ---
EXAMINATION TYPE: XR ankle complete LT DATE OF EXAM: 03/28/2019 CLINICAL HISTORY: Left ankle pain after fall TECHNIQUE: Frontal, lateral and oblique images of the left ankle are obtained. COMPARISON: None. FINDINGS: There is no acute fracture/dislocation evident in the left ankle. The ankle mortise appea rs within normal limits. The overlying soft tissue appears unremarkable. IMPRESSION: There is no acute fracture or dislocation in the left ankle.
== END | disposition home or self-care (01) ==
LOC: RADXRMAIN 11:59
PROVIDERS: ATTEND Internal Medicine Hematology & Oncology
DX: M79.672 Pain in left foot (principal)

== ENCOUNTER → 2020-05-18 | Outpatient (CLI) | payer BC ==
--- NOTE | 2020-05-18 08:49 | CT ---
EXAMINATION TYPE: CT iac wo con DATE OF EXAM: 05/18/2020 COMPARISON: None HISTORY: Right side hearing loss, perforated ear drum CT DLP: 150mGycm Automated exposure control for dose reduction was used. FINDINGS: The external auditory canals are patent bilaterally. Mastoid air cells show no evidence of abnormal opacification bilaterally. The middle ear ossicles are symmetric and unremarkable. There is no evidence of suspicious surrounding soft tissue density to suggest cholesteatoma. The scutum is preserved bilaterally. The cochlea and the semicircular canals are symmetric and unremarkable. Ves tibular aqueduct and internal carotid canal appear unremarkable. Temporomandibular joints are mainta ined bilaterally. IMPRESSION: No significant abnormality seen to account for patient's symptoms.
== END | disposition home or self-care (01) ==
LOC: RADCTMAIN 08:04
PROVIDERS: ATTEND Nurse Practitioner Family
DX: H92.01 Otalgia, right ear (principal); H72.91 Unspecified perforation of tympanic membrane, right ear; H72.00 Central perforation of tympanic membrane, unspecified ear; H93.8X1 Other specified disorders of right ear
CPT/HCPCS: 70480

== ENCOUNTER 2020-06-09 20:41 | Emergency (ER) | payer BC ==
[2020-06-09 20:58] VITALS: RESP 18; TEMP 97.8
[2020-06-09 22:15] LABS: Appearance,Urine Clear (Clear); Bilirubin,Urine Negative (Negative); Blood,Urine Large (Negative); Color,Urine Yellow; Glucose,Urine (UA) Negative (Negative); Ketones,Urine Negative (Negative); Leukocyte Esterase,Urine Negative (Negative); Mucus,Urine Occasional /hpf; Nitrite,Urine Negative (Negative); PH, Urine 6.5 (5.0-8.0); Protein,Urine Trace (Negative); RBC,Urine >182 /hpf (0-5); Specific Gravity,Urine 1.028 (1.001-1.035); Squamous Epithelial Cell,Urine 4 /hpf (0-4); Urobilinogen,Urine <2.0 mg/dL (<2.0)
--- NOTE | 2020-06-09 23:05 | ED ---
Female Urogenital HPI - General Chief complaint: Vaginal Bleeding Stated complaint: Vaginal Bleeding Time Seen by Provider: 06/09/20 20:50 Source: patient Mode of arrival: ambulatory Limitations: no limitations - History of Present Illness Initial comments: 35-year-old female with no past nuchal history presents emergency department with reported abnormal vaginal bleeding. Patient states that she began having some abnormal vaginal discharge approximately one week ago. She has had BV multiple times and thought they had an odor therefore she called her primary care office who put her on metronidazole gel. She has been using it for 5 nights but does not believe that her symptoms are improving. She began having some vaginal bleeding which started yesterday. Patient has an Implanon states that her menstrual cycles are not regular. She is unsure she is on her normal menstrual cycle. Patient thought that the bleeding a little bit abnormal. States that there are several clots with what she thought was light brown/red tissue. Patient has had unprotected intercourse. There is concern for suture transmitted infections as well as . Patient is concerned for miscarriage. She denies any fevers or chills. No nausea or vomiting. Denies dysuria, hematuria or difficulty voiding. No changes in her bowel habits. No other alleviating, precipitating or modifying factors - Related Data Home Medications Medication Instructions Recorded Confirmed Famotidine [Pepcid] 20 mg PO BID 06/09/20 06/09/20 Ibuprofen [Motrin Ib] 800 mg PO DAILY PRN 06/09/20 06/09/20 Venlafaxine HCl ER [Effexor XR] 75 mg PO DAILY 06/09/20 06/09/20 Allergies Allergy/AdvReac Type Severity Reaction Status Date / Time No Known Allergies Allergy Verified 06/09/20 22:39 Review of Systems ROS Statement: Those systems with pertinent positive or pertinent negative responses have been documented in the HPI. ROS Other: All systems not noted in ROS Statement are negative. Past Medical History Past Medical History: No Reported History History of Any Multi-Drug Resistant Organisms: None Reported Past Surgical History: No Surgical Hx Reported Additional Past Surgical History / Comment(s): CERVIX PROCEDURE Past Anesthesia/Blood Transfusion Reactions: No Reported Reaction Past Psychological History: Depression Smoking Status: Never smoker Past Alcohol Use History: Occasional Past Drug Use History: None Reported - Past Family History Mother Family Medical History: Cancer Additional Family Medical History / Comment(s): Grandmother has lung cancer General Exam Limitations: no limitations General appearance: alert, in no apparent distress Head exam: Present: atraumatic, normocephalic, normal inspection Eye exam: Present: normal appearance, PERRL, EOMI. Absent: scleral icterus, conjunctival injection, periorbital swelling ENT exam: Present: normal exam, mucous membranes moist Neck exam: Present: normal inspection. Absent: tenderness, meningismus, lymphadenopathy Respiratory exam: Present: normal lung sounds bilaterally. Absent: respiratory distress, wheezes, rales, rhonchi, stridor Cardiovascular Exam: Present: regular rate, normal rhythm, normal heart sounds. Absent: systolic murmur, diastolic murmur, rubs, gallop, clicks GI/Abdominal exam: Present: soft, normal bowel sounds. Absent: distended, tenderness, guarding, rebound, rigid Speculum exam: Present: vaginal bleeding. Absent: erythema, vaginal discharge, cervical discharge, tissue By manual exam: Absent: cervical motion tenderness, adnexal tenderness Extremities exam: Present: normal inspection, full ROM, normal capillary refill. Absent: tenderness, pedal edema, joint swelling, calf tenderness Back exam: Present: normal inspection Neurological exam: Present: alert, oriented X3, CN II-XII intact Psychiatric exam: Present: normal affect, normal mood Skin exam: Present: warm, dry, intact, normal color. Absent: rash Course Vital Signs 06/09/20 06/09/20 20:51 23:20 Temperature 97.8 F Pulse Rate 74 75 Respiratory 18 18 Rate Blood Pressure 120/86 123/72 O2 Sat by Pulse 99 99 Oximetry Medical Decision Making - Medical Decision Making Upon arrival the patient was placed into room 26. A thorough history and physical exam was performed. Patient does provide a urine sample. It is remarkable for large blood, greater than 182 red blood cells with occasional mucous. HCG is not detected. Pelvic exam is performed on the patient. Does demonstrate a closed cervical os. Vaginal vault is filled with some dark clotted blood. No abnormal vaginal discharge. No cervical or adnexal tenderness. Cultures are obtained. I did discuss the diagnosis, differential treatment options. I did offer treatment for sexually transmitted infections but the patient refused. At this time the patient will be discharged home and needs to follow-up with her PACKAGE WORKER. I did recommend ultrasound and testing for abnormal uterine bleeding. The patient agreed to this. Return to the emergency room for any new or worsening symptoms. Patient was discharged home in stable condition - Lab Data Lab Results 06/09/20 06/09/20 06/09/20 Range/Units 22:01 22:01 23:18 Urine Color Yellow Urine Appearance Clear (Clear) Urine pH 6.5 (5.0-8.0) Ur Specific [place] 1.028 (1.001-1.035) Urine Protein Trace H (Negative) Urine Glucose (UA) Negative (Negative) Urine Ketones Negative (Negative) Urine Blood Large H (Negative) Urine Nitrite Negative (Negative) Urine Bilirubin Negative (Negative) Urine Urobilinogen <2.0 (<2.0) mg/dL Ur Leukocyte Esterase Negative (Negative) Urine RBC >182 H (0-5) /hpf Ur Squamous Epith Cells 4 (0-4) /hpf Urine Mucus Occasional H (None) /hpf Urine HCG, Qual Not Detected (Not Detectd) Trichomonas Ag (Rapid) Negative (Negative) Disposition Clinical Impression: Abnormal vaginal bleeding Disposition: HOME SELF-CARE Condition: Stable Instructions (If sedation given, give patient instructions): Dysmenorrhea (ED) Additional Instructions: Please follow-up with your PACKAGE WORKER. Return to the emergency room for any new or worsening symptoms Is patient prescribed a controlled substance at d/c from ED?: No Referrals: Jimmy Kemp MD [Primary Care Provider] - 1-2 days Time of Disposition: 23:05
[2020-06-09 23:21] VITALS: BP 123/72; PULSE 75
[2020-06-11 07:10] LABS: C. trachomatis,PCR Negative (Neg,Equiv); Chlamydia trachomatis Source Vagina; N. gonorrhoeae,PCR Negative (Neg,Equiv); Neisseria Source Vagina
== END 2020-06-09 23:21 | disposition home or self-care (01) ==
LOC: EC 20:41
DX: N93.9 Abnormal uterine and vaginal bleeding, unspecified (principal); F32.9 Major depressive disorder, single episode, unspecified; Z79.899 Other long term (current) drug therapy
CPT/HCPCS: 81001; 81025; 87070; 87491; 87591; 87808; 99284

== ENCOUNTER → 2021-01-22 | Outpatient (CLI) | payer BC ==
--- NOTE | 2021-01-22 16:12 | US ---
EXAMINATION TYPE: US abdomen complete DATE OF EXAM: 01/22/2021 COMPARISON: NONE CLINICAL HISTORY: R10.11 ABD PAIN RUQ. Pain EXAM MEASUREMENTS: Liver Length: 12.8 cm Gallbladder Wall: .09 cm CBD: .3 cm Spleen: 9.8 cm Right Kidney: 10.0 x 3.4 x 5.0 cm Left Kidney: 10.8 x 3.6 x 3.8 cm Pancreas: wnl Liver: wnl Gallbladder: wnl Evidence for sonographic Carroll's sign: no CBD: wnl Spleen: wnl Right Kidney: wnl Left Kidney: wnl Upper IVC: wnl Abd Aorta: wnl The liver is homogenous. The intrahepatic portion of the IVC and proximal abdominal aorta are within normal limits. There is no evidence of cholelithiasis. Common bile duct is unremarkable. The visu alized portions of the pancreas are homogenous. The spleen is unremarkable. Kidneys are symmetric a nd free of hydronephrosis. No renal lesions are seen. IMPRESSION: 1. No hydronephrosis or shadowing renal calculi. 2. No gallstones, sludge, or pericholecystic fluid.
== END | disposition home or self-care (01) ==
LOC: RADUSWWP 12:47
PROVIDERS: ATTEND Internal Medicine Hematology & Oncology
DX: R10.11 Right upper quadrant pain (principal)
CPT/HCPCS: 76700

== ENCOUNTER → 2021-02-12 | Outpatient (CLI) | payer BC, OTHER ==
--- NOTE | 2021-02-12 13:05 | NM ---
EXAMINATION TYPE: NM hepatobiliary w EF DATE OF EXAM: 02/12/2021 COMPARISON: Ultrasound 01/22/2021 HISTORY: 35-year-old female R10.11, right upper quadrant pain TECHNIQUE: After the intravenous administration of 3.9 mCi Tc 99m Mebrofenin hepatobiliary scintigrap hy is performed. Immediate images post injection. FINDINGS: There is satisfactory initial accumulation of tracer by the liver. The gallbladder is visualized wit hin 6 minutes. The small bowel activity is noted after one hour following an ileus administration of 8 ounces of oral ensure plus in order to mimic CCK. Gallbladder ejection fraction is calculated at 8 0 %, borderline increased. IMPRESSION: 1. No scintigraphic evidence for acute/chronic cholecystitis or biliary dyskinesia. 2. Borderline increased gallbladder ejection fraction (80%) may be seen with gallbladder hyperkinesis .
== END | disposition home or self-care (01) ==
LOC: RADNMMAIN 06:54
PROVIDERS: ATTEND Internal Medicine
DX: R10.11 Right upper quadrant pain (principal)
CPT/HCPCS: 78226; A9537

== ENCOUNTER → 2021-04-02 | Day surgery (SDC) | payer BC, OTHER ==
[2021-03-31 11:03] VITALS: BMI 20.9
--- NOTE | 2021-04-01 12:12 | HP ---
HISTORY AND PHYSICAL CHIEF COMPLAINT: Left knee mass. 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 She notes she has previously had this lanced by another physician who expressed significant material. It did recur. She denies any fevers or chills. PAST MEDICAL HISTORY: Negative. PAST SURGICAL HISTORY: Significant for section. CURRENT MEDICATIONS: None. ALLERGIES: She denies drug allergies. FAMILY HISTORY: Significant for heart disease and diabetes. SOCIAL HISTORY: Significant for social alcohol use and previous tobacco use. REVIEW OF SYSTEMS: Sixteen-point review of systems is otherwise reviewed and is noncontributory. PHYSICAL EXAMINATION: On examination, the patient is approximately 5 foot 4, 117 pounds of mesomorphic habitus. HEENT exam is nonfocal. NECK is supple. She has painless passive motion of her left hip. Straight leg raise is negative. Active motion left knee 0-145 degrees of flexion. She has no real joint line tenderness. She has a 1 x 1 cm soft tissue mass lateral to the tibial crest about the proximal tibia. There is no warmth or erythema. On examination of her left knee, the ligaments are stable, Shaun is negative, Josse's is negative. Her distal neurovascular exam appears intact in the left lower extremity. X-rays of the left knee showed no significant osseous abnormality. IMPRESSION: Left knee soft tissue mass/probable epidermal inclusion cyst. RECOMMENDATIONS: I talked to the patient at length regarding her condition and treatment options. At this point, she would like to proceed with surgery. We will plan to proceed with excision of the soft tissue mass. Risks and benefits were discussed at length in layman's terms. Potentially we will perform this utilizing IV sedation and local anesthesia. MMODL / IJN: [id number] /
[~2021-04-02] MED LIST: BUPIVACAINE (PF) 0.25% 30 ML VIAL SQ ONE; DEXAMETHASONE SOD PHOSPHATE 4 MG/ML 1 ML VIAL IV ONE; HYDROmorphone 0.5 MG/0.5 ML SYRINGE IVP PRN; LACTATED RINGERS 1,000 ML IV SCH; LIDOCAINE 1% (10MG/ML) FOR IV START INTRADERMA PRN; LIDOCAINE 1% INJ 10MG/ML (20 ML MDV) ONE; MIDAZOLAM 2 MG/2 ML VIAL IV PRN; MIDAZOLAM 2 MG/2 ML VIAL ONE; ONDANSETRON 4 MG/2 ML VIAL IVP ONE; PROPOFOL 10 MG/ML 20 ML VIAL IV ONE; fentaNYL (PF) 50 MCG/ML 2 ML AMP ONE
[2021-04-02 10:26] VITALS: RESP 16; TEMP 97.3
--- NOTE | 2021-04-02 11:53 | P.OP ---
Date of Procedure: 04/02/21 Preoperative Diagnosis: Left proximal alaniz soft tissue mass Postoperative Diagnosis: Same Procedure(s) Performed: Excision soft tissue mass left proximal alaniz Anesthesia: MAC, local Surgeon: Osito Sam Estimated Blood Loss (ml): 2 Pathology: other (1 x 1.5 cm soft tissue mass) Condition: stable Disposition: PACU Indications for Procedure: The patient's a 35-year-old female who presents with a soft tissue mass about her left proximal lateral alaniz for the past 6 months. She had attempted lancing of this recently. It recurred. A discussion of the risks and benefits of operative intervention was made with patient. She opted to proceed. Risks of surgery to include possible recurrence need for subsequent procedures was discussed. Informed consent was obtained. Operative Findings: As below Description of Procedure: The patient was brought to the operating room, and after induction of IV sedation the left lower extremity was prepped and draped in normal fashion. The proposed incision site was outlined over the palpable mass about the anterior lateral aspect of the left proximal alaniz/leg. 8 mL of quarter percent plain Marcaine was injected. A 1-1/2 cm skin incision was then made. Skin was incised sharply. Subcutaneous tissues were divided bluntly. The soft tissue mass was then dissected out completely. It measured approximately 1.5 x 1 cm. On the back table this was sectioned and was consistent with an epidermal inclusion cyst. It was sent for pathology. The wound was irrigated normal saline. The subcutaneous tissues reapproximated interrupted 3-0 Vicryl suture. The skin was reapproximated Steri-Strips. A sterile dressing was applied. Patient was then awoken from sedation and transferred to the recovery room in good condition. Blood loss was estimated 2 mL. No complications were incurred. Sponge and needle counts were correct at the end of the case.
[2021-04-02 12:12] VITALS: BP 112/76; PULSE 64
== END | disposition home or self-care (01) ==
LOC: OR 09:40
PROVIDERS: ATTEND Orthopaedic Surgery
DX: L72.0 Epidermal cyst (principal); Z98.891 History of uterine scar from previous surgery; Z82.49 Family history of ischemic heart disease and other diseases of the circulatory system; Z83.3 Family history of diabetes mellitus; F17.200 Nicotine dependence, unspecified, uncomplicated; K21.9 Gastro-esophageal reflux disease without esophagitis; Z98.890 Other specified postprocedural states; Z79.899 Other long term (current) drug therapy
CPT/HCPCS: 81025; 88304; 27327; J2250; J1100; J2405; J0690; J2001; J3010; J2704

== ENCOUNTER 2022-09-13 09:35 | Day surgery (SDC) | payer BC, OTHER ==
[2022-09-08 14:37] VITALS: BMI 19.9
[~2022-09-13 09:35] MED LIST changes: -BUPIVACAINE (PF) 0.25% 30 ML VIAL SQ ONE; -DEXAMETHASONE SOD PHOSPHATE 4 MG/ML 1 ML VIAL IV ONE; -HYDROmorphone 0.5 MG/0.5 ML SYRINGE IVP PRN; -LIDOCAINE 1% INJ 10MG/ML (20 ML MDV) ONE; -MIDAZOLAM 2 MG/2 ML VIAL IV PRN; -MIDAZOLAM 2 MG/2 ML VIAL ONE; -ONDANSETRON 4 MG/2 ML VIAL IVP ONE; -PROPOFOL 10 MG/ML 20 ML VIAL IV ONE; -fentaNYL (PF) 50 MCG/ML 2 ML AMP ONE
[2022-09-13 10:06] VITALS: TEMP 96.9
[2022-09-13] MEDS ORDERED: LIDOCAINE 2% INJ 20 MG/ML (2 ML VIAL) ONE (11:00)
[2022-09-13] MEDS ORDERED: PROPOFOL 10 MG/ML 20 ML VIAL IV ONE (11:00)
--- NOTE | 2022-09-13 11:09 | P.GSHP ---
History of Present Illness H&P Date: 09/13/22 Chief Complaint: GERD 37 row female complains of intermittent episodes of reflux, dysphagia, epigastric abdominal pain, and the sensation of a lump in her throat or chest. She has tried Pepcid and Protonix both providing some relief. No rectal bleeding or melena. Past Medical History Past Medical History: GERD/Reflux Additional Past Medical History / Comment(s): soft tissue mass left knee History of Any Multi-Drug Resistant Organisms: None Reported Past Surgical History: Section, Ear Surgery Additional Past Surgical History / Comment(s): CERVIX PROCEDURE, rt ear procedure to repair hole Past Anesthesia/Blood Transfusion Reactions: No Reported Reaction Smoking Status: Vaper - Past Family History Mother Family Medical History: Cancer Additional Family Medical History / Comment(s): maternal Grandmother has lung cancer Medications and Allergies Home Medications Medication Instructions Recorded Confirmed Type Etonogestrel [Nexplanon] 68 mg SQ CONTINUOUS 09/08/22 09/13/22 History Inulin/Chromium Picolinate [Fiber 1 tab PO BID 09/08/22 09/13/22 History Gummies Chew] Pantoprazole [Protonix] 40 mg PO DAILY 09/08/22 09/13/22 History Allergies Allergy/AdvReac Type Severity Reaction Status Date / Time No Known Allergies Allergy Verified 09/13/22 09:58 Surgical - Exam Vital Signs Temp Pulse Resp BP Pulse Ox 96.9 F L 59 L 18 96/55 98 09/13/22 09:57 09/13/22 09:57 09/13/22 09:57 09/13/22 09:57 09/13/22 09:57 Physical exam: General: Well-developed, well-nourished HEENT: Normocephalic, sclerae nonicteric Abdomen: Nontender, nondistended Extremities: No edema Neuro: Alert and oriented Assessment and Plan (1) GERD (gastroesophageal reflux disease) Narrative/Plan: Will proceed with upper endoscopy Current Visit: Yes Status: Acute Code(s): K21.9 - GASTRO-ESOPHAGEAL REFLUX DISEASE WITHOUT ESOPHAGITIS SNOMED Code(s): 637129335
--- NOTE | 2022-09-13 11:14 | P.PCN ---
Date of Procedure: 09/13/22 Procedure(s) Performed: Preoperative Dx: GERD Postoperative Dx: Minimal gastritis Procedure: EGD with Bx Anesthesia: Sedation Endoscopist: Dr. Padilla Specimens: Antrum Endoscopic Procedure: The patient was on the endoscopy table in the left decubitus position. The Olympus gastroscope was inserted into the oropharynx and passed under direct visualization to the region of the third portion of the duodenum. From that point the scope was slowly withdrawn inspecting all surfaces carefully. There were no neoplastic inflammatory or polypoid lesions throughout the duodenum. The pylorus was widely patent. The stomach was carefully inspected. There was minimal gastritis present. A biopsy of the antrum took place to rule out H. pylori. Retroflexion revealed a normal hiatus. The esophagus was then carefully examined. There were no neoplastic inflammatory or polypoid lesions throughout the visualized esophagus. The patient was then taken to the recovery room in stable condition per anesthesia guidelines. Recommendations: Continue as needed antiacid therapy. Await biopsy results.
[2022-09-13 11:41] VITALS: BP 97/59; PULSE 65; RESP 20
== END 2022-09-13 11:55 | disposition home or self-care (01) ==
LOC: ORWHC2ENDO 09:35
PROVIDERS: ATTEND Surgery
DX: K29.50 Unspecified chronic gastritis without bleeding (principal); Z79.899 Other long term (current) drug therapy; K21.00 Gastro-esophageal reflux disease with esophagitis, without bleeding; Z80.1 Family history of malignant neoplasm of trachea, bronchus and lung
CPT/HCPCS: 81025; 88305; 43239; J2704; J2001

== ENCOUNTER 2024-05-22 08:16 | Emergency (ER) | payer BC, OTHER ==
--- NOTE | 2024-05-22 09:21 | ED ---
General Adult HPI - General Chief complaint: Shortness of Breath Stated complaint: cough/congestion/sore throat/SOB Time Seen by Provider: 05/22/24 08:30 Source: patient, RN notes reviewed, old records reviewed Mode of arrival: ambulatory Limitations: no limitations - History of Present Illness Initial comments: This is a 39-year-old female who comes to the emergency department complaining of 3-day history of not feeling well. Patient states even touching her skin on her back this morning was sensitive. Patient states she took Motrin at 740 this morning. Patient states she also felt short of breath. Patient states her doctor yesterday gave her Zithromax and Tessalon Perles yesterday. Patient does complain of a cough but no sputum production. Patient denies a headache patient denies numbness weakness. Patient denies sore throat. Patient feels like her ears are plugged. Patient denies any chest pain. - Related Data Home Medications Medication Instructions Recorded Confirmed Etonogestrel [Nexplanon] 68 mg SQ CONTINUOUS 09/08/22 09/13/22 Inulin/Chromium Picolinate [Fiber 1 tab PO BID 09/08/22 09/13/22 Gummies Chew] Pantoprazole [Protonix] 40 mg PO DAILY 09/08/22 09/13/22 Allergies Allergy/AdvReac Type Severity Reaction Status Date / Time No Known Allergies Allergy Verified 05/22/24 08:32 Review of Systems ROS Statement: Those systems with pertinent positive or pertinent negative responses have been documented in the HPI. ROS Other: All systems not noted in ROS Statement are negative. Past Medical History Past Medical History: GERD/Reflux Additional Past Medical History / Comment(s): soft tissue mass left knee History of Any Multi-Drug Resistant Organisms: None Reported Past Surgical History: Section, Ear Surgery Additional Past Surgical History / Comment(s): CERVIX PROCEDURE, rt ear procedure to repair hole Past Anesthesia/Blood Transfusion Reactions: No Reported Reaction Past Psychological History: Depression Smoking Status: Vaper Past Alcohol Use History: Occasional Past Drug Use History: Marijuana - Past Family History Mother Family Medical History: Cancer Additional Family Medical History / Comment(s): maternal Grandmother has lung cancer General Exam - General Exam Comments Initial Comments: GENERAL: Patient is well-developed and well-nourished. Patient is nontoxic and well- hydrated and is in no acute distress. Patient's oral temperature is 99.2 but she already took Motrin at 740 ENT: Neck is soft and supple. No significant lymphadenopathy is noted. Oropharynx is clear. Moist mucous membranes. Neck has full range of motion without eliciting any pain. EYES: The sclera were anicteric and conjunctiva were pink and moist. Extraocular movements were intact and pupils were equal round and reactive to light. Eyelids were unremarkable. PULMONARY: Unlabored respirations. Good breath sounds bilaterally. No audible rales rhonchi or wheezing was noted. CARDIOVASCULAR: There is a regular rate and rhythm without any murmurs gallops or rubs. ABDOMEN: Soft and nontender with normal bowel sounds. SKIN: Skin is clear with no lesions or rashes and otherwise unremarkable. NEUROLOGIC: Patient is alert and oriented x3. Cranial nerves II through XII are grossly intact. Motor and sensory are also intact. Normal speech, volume and content. Symmetrical smile. MUSCULOSKELETAL: Normal extremities with adequate strength and full range of motion. No lower extremity swelling or edema. No calf tenderness. LYMPHATICS: No significant lymphadenopathy is noted PSYCHIATRIC: Normal psychiatric evaluation. Limitations: no limitations Course Vital Signs 05/22/24 05/22/24 08:28 09:34 Temperature 99.4 F Pulse Rate 73 Respiratory 17 18 Rate Blood Pressure 107/72 O2 Sat by Pulse 95 Oximetry Medical Decision Making - Medical Decision Making Was pt. sent in by a medical professional or institution (TAYA Shin, [employer]ICIAN, urgent care, hospital, or fdc...) When possible be specific @ -No Did you speak to anyone other than the patient for history (EMS, parent, family, police, friend...)? What history was obtained from this source @ -No Did you review nursing and triage notes (agree or disagree)? Why? @ -I reviewed and agree with nursing and triage notes Were old charts reviewed (outside hosp., previous admission, EMS record, old EKG, old radiological studies, urgent care reports/EKG's, fdc records)? Report findings @ -No old charts were reviewed Differential Diagnosis? @ -COVID, influenza, RSV, viral syndrome, this is not an all-inclusive list EKG interpreted by me (3pts min.). @ -As above X-rays interpreted by me (1pt min.). @ -Chest x-ray shows no acute abnormality CT interpreted by me (1pt min.). @ -None done U/S interpreted by me (1pt. min.). @ -None done What testing was considered but not performed or refused? (CT, X-rays, U/S, l abs)? Why? @ -None What meds were considered but not given or refused? Why? @ -None Did you discuss the management of the patient with other professionals (professionals i.e. DrFly, PA, [employer] TECHNICIAN, lab, RT, psych nurse, social work specialist, evaporator, teacher, soil science technical officer, mattress spring encaser)? Give summary @ -No Was smoking cessation discussed for >3mins.? @ -No Was critical care preformed (if so, how long)? @ -No Were there social determinants of health that impacted care today? How? (Homelessness, low income, unemployed, alcoholism, drug addiction, transportation, low edu. Level, literacy, decrease access to med. care, residential, rehab)? @ -No Was there de-escalation of care discussed even if they declined (Discuss DNR or withdrawal of care, Hospice)? DNR status @ -No What co-morbidities impacted this encounter? (DM, HTN, Smoking, COPD, CAD, Cancer, CVA, ARF, Chemo, Hep., AIDS, mental health diagnosis, sleep apnea, morbid obesity)? @ -None Was patient admitted / discharged? Hospital course, mention meds given and route, prescriptions, significant lab abnormalities, going to OR and other pertinent info. @ -Patient's vitals were normal throughout her ED stay. Patient's pulse ox was normal. Patient's chest x-ray was normal. Patient tested positive for COVID Undiagnosed new problem with uncertain prognosis? @ -No Drug Therapy requiring intensive monitoring for toxicity (Heparin, Nitro, Insulin, Cardizem)? @ -No Were any procedures done? @ -No Diagnosis/symptom? @ -COVID Acute, or Chronic, or Acute on Chronic? @ -Acute Uncomplicated (without systemic symptoms) or Complicated (systemic symptoms)? @ -Complicated Side effects of treatment? @ -No Exacerbation, Progression, or Severe Exacerbation? @ -No Poses a threat to life or bodily function? How? (Chest pain, [place], [place], pneumonia, PE, COPD, DKA, ARF, appy, cholecystitis, CVA, Diverticulitis, Homicidal, Suicidal, threat to staff... and all critical care pts) @ -No - Lab Data Lab Results 05/22/24 Range/Units 09:19 Influenza Type A (PCR) Not Detected (Not Detectd) Influenza Type B (PCR) Not Detected (Not Detectd) RSV (PCR) Not Detected (Not Detectd) SARS-CoV-2 (PCR) Detected A (Not Detectd) Disposition Clinical Impression: COVID-19 Disposition: HOME SELF-CARE Condition: Good Instructions (If sedation given, give patient instructions): COVID-19 (Coronavirus Disease 2019) (ED) Is patient prescribed a controlled substance at d/c from ED?: No Referrals: Jimmy Kemp MD [Primary Care Provider] - 1-2 days Time of Disposition: 10:12
--- NOTE | 2024-05-22 10:28 | XR ---
EXAMINATION TYPE: XR chest 2V DATE OF EXAM: 05/22/2024 COMPARISON: 10/03/2016 INDICATION: Chest pain and cough congestion TECHNIQUE: Frontal and lateral views of the chest are obtained. FINDINGS: The heart size is normal. The pulmonary vasculature is normal. The lungs are clear. IMPRESSION: 1. No acute pulmonary process. [facility], , 05/22/2024 10:25 AM
[2024-05-22 10:48] VITALS: BP 109/74; PULSE 69; RESP 16; TEMP 98.8
== END 2024-05-22 10:45 | disposition home or self-care (01) ==
LOC: EC 08:16
CPT/HCPCS: 71046; 87636; 99285

== ENCOUNTER → 2025-03-06 | Outpatient (CLI) | payer BC ==
--- NOTE | 2025-03-06 08:27 | US ---
EXAMINATION TYPE: US gallbladder DATE OF EXAM: 03/06/2025 COMPARISON: US 2020 CLINICAL INDICATION: Female, 39 years old with history of R10.11 RUQ PAIN; Discomfort after eating, b loating TECHNIQUE: Grayscale and color Doppler imaging of the right upper quadrant was performed. FINDINGS: EXAM MEASUREMENTS: Liver Length: 15.1 cm Gallbladder Wall: 0.1 cm CBD: 0.2 cm Right Kidney: 10.8 x 3.5 x 4.8 cm Pancreas: wnl Liver: wnl Gallbladder: wnl Evidence for sonographic Carroll's sign: no CBD: wnl Right Kidney: 1.0cm cyst superior pole IMPRESSION: 1 cm cyst upper pole right kidney. [facility], , 03/06/2025 8:25 AM
== END | disposition home or self-care (01) ==
LOC: RADUSWWP 07:24
PROVIDERS: ATTEND Internal Medicine
DX: N28.1 Cyst of kidney, acquired (principal)
CPT/HCPCS: 76705